=== PATIENT | female | born 1985 | race Caucasian/White ===

== ENCOUNTER 2018-05-02 15:12 | Emergency (ER) | payer OTHER ==
[~2018-05-02] VITALS: Ht 175.3 cm; Wt 69.5 kg
[~2018-05-02 15:12] MED LIST: ALBUTEROL SUL0.083 % IN; AMOXICILLIN500 MG PO; BUSPIRONE5 MG PO; CIPROFLOXACN500 MG PO; FERR SULFATE325 MG PO; LAMICTAL100 M1 PO; LORTAB 7.57.5 MG PO; MACRODANTIN100 MG PO; MIRALAX3350 N1 PO; PERCOCET 5/325M1 TAB PO; PHENERGAN25 MG/TAB PO; PRENATAL1 TA1 PO; RISPERDAL1 M1 PO
[2018-05-02] MEDS ORDERED: ABILIFY10 M1 PO (15:31)
[2018-05-02] MEDS ORDERED: BUSPAR5 MG PO (15:31)
[2018-05-02] MEDS ORDERED: TORADOL PO (15:46)
[2018-05-02] MEDS ORDERED: CLEOCIN300 MG PO (15:46)
[2018-05-02 16:00] VITALS: BP 123/65
== END 2018-05-02 16:00 | disposition home or self-care (01) ==
LOC: ED 15:12
DX: K04.7 Periapical abscess without sinus (principal); M25.48 Effusion, other site; K08.89 Other specified disorders of teeth and supporting structures; F17.210 Nicotine dependence, cigarettes, uncomplicated

== ENCOUNTER 2018-10-03 22:37 | Emergency (ER) | payer BC, OTHER ==
[~2018-10-03] VITALS: Ht 175.3 cm; Wt 90.0 kg
[~2018-10-03 22:37] MED LIST changes: +ABILIFY10 M1 PO; +BUSPAR5 MG PO; +CLEOCIN300 MG PO; +TORADOL PO
[2018-10-03] MEDS ORDERED: VENLAFAXINE75 M1 PO (23:16)
[2018-10-03] MEDS ORDERED: TRILEPTAL300 M1 PO (23:17)
[2018-10-03] MEDS ORDERED: CLINDAMYCIN300 M1 PO (23:34)
[2018-10-03] MEDS ORDERED: TYLENOL # 31 TAB PO (23:34)
[2018-10-03] MEDS ORDERED: VOLTAREN - GENE75 MG PO (23:34)
[2018-10-03 23:50] VITALS: BP 122/61
== END 2018-10-04 00:20 | disposition home or self-care (01) | DRG 159 ==
LOC: ED 22:37
DX: K04.7 Periapical abscess without sinus (principal); K02.9 Dental caries, unspecified; F17.200 Nicotine dependence, unspecified, uncomplicated